=== PATIENT | female | born 1970 | race Caucasian/White ===

== ENCOUNTER 2024-06-17 14:25 | Outpatient (OUT) | payer OTHER, SELFPAY ==
--- NOTE | 2024-06-17 | ECG_ITS ---
[facility] Test Date: 2024-06-17 Pat Name: MILENA CULVER Department: Room: - Gender: Female [employer]: : 1970 Requested By: RUPERTO BURCH Order Number: [id number] Reading MD: CIERA YAÑEZ Measurements Intervals [place] Rate: 69 P: 76 LA: 165 QRS: 81 QRSD: 86 T: 67 QT: 363 QTc: 390 Interpretive Statements SINUS RHYTHM No previous ECG available for comparison Electronically Signed On 06-17-2024 20:24:31 EST by CIERA YAÑEZ
--- NOTE | 2024-06-17 14:40 | XR_ITS ---
The [address] [address] Patient Name: MILENA CULVER MRN: [id number] date: 1970 Sex: F Assigned Patient Location: CARD Current Patient Location: Accession/Order Number: [id number] Exam Date: 06/17/2024 14:45 Report Date: 06/18/2024 06:07 At the request of: NISHI SANTANA Procedure: XR chest 2V EXAMINATION: XR chest 2V HISTORY: Stress Incontinence COMPARISON: No relevant comparison available. FINDINGS: LUNGS: No significant pulmonary parenchymal abnormalities. VASCULATURE: No increased pulmonary vasculature. PLEURA: No pneumothorax, effusion, or pleural thickening. CARDIAC: No cardiomegaly or cardiac silhouette abnormality. MEDIASTINUM: No visible mass or adenopathy. BONES: No fracture or visible bone lesion. OTHER: Negative. XR/XR chest 2V IMPRESSION: No acute cardiopulmonary process. Electronically authenticated by: CASEY PARISH Date: 06/18/2024 06:07
[2024-06-17 15:23] LABS: Basophils Absolute Auto 0.1 10^3/uL (0.0-0.1); Basophils Percent Auto 1.2 % (0.2-2.0); Eosinophils Absolute Auto 0.3 10^3/uL (0.0-0.7); Eosinophils Percent Auto 4.7 % (0.9-7.0); Hematocrit 39.5 % (36.0-48.0); Hemoglobin 13.4 g/dL (12.0-16.0); Immature Granulocytes Abs Auto 0.02 10^3/uL (0.00-0.03); Immature Granulocytes Pct Auto 0.3 % (0.0-0.5); Lymphocytes Absolute Auto 2.1 10^3/uL (1.2-3.8); Lymphocytes Percent Auto 31.2 % (20.5-60.0); Mean Corpuscular HGB Conc 33.9 g/dL (29.9-35.2); Mean Corpuscular Hemoglobin 31.1 pg (26.7-34.0); Mean Corpuscular Volume 91.6 fL (81.0-99.0); Mean Platelet Volume 12.1 fL (9.5-13.5); Monocytes Absolute Auto 0.5 10^3/uL (0.3-0.8); Monocytes Percent Auto 7.5 % (1.7-12.0); Neutrophils Absolute Auto 3.7 10^3/uL (1.4-6.5); Neutrophils Percent Auto 55.1 % (43.0-75.0); Platelet Count 256 10^3/uL (150-450); Red Blood Count 4.31 10^6/uL (4.20-5.40); Red Cell Distribution Width 11.7 % (11.0-15.0); White Blood Count 6.6 10^3/uL (4.0-11.0)
[2024-06-17 15:28] LABS: Bilirubin Urine NEGATIVE (NEGATIVE); Blood Urine NEGATIVE (NEGATIVE); Clarity Urine SL CLOUDY (CLEAR); Color Urine LT. YELLOW (YELLOW); Glucose Urine UA NEGATIVE (NEGATIVE); Ketones Urine NEGATIVE (NEGATIVE); Leukocyte Esterase Urine SMALL (NEGATIVE); Nitrite Urine NEGATIVE (NEGATIVE); Protein Urine NEGATIVE (NEG/TRACE); Specific Gravity Urine 1.015 (1.005-1.025); Urobilinogen Urine 0.2 EU/dL (0.2-1.0)
[2024-06-17 15:40] LABS: Anion Gap 10.5; BUN Creatinine Ratio 22.2; Calcium 9.4 mg/dL (8.5-10.1); Carbon Dioxide 30.2 mmol/L (21.0-32.0); Chloride 103 mmol/L (98-107); Estimated GFR (African America >60 (>=60 mL/min/1.73m^2); Estimated GFR (Non-African Ame >60 (>=60 mL/min/1.73m^2); Glucose 83 mg/dL (74-106); INR 1.03; Partial Thromboplastin Time 29.3 sec (22.3-36.2); Potassium 3.7 mmol/L (3.5-5.1); Prothrombin Time 10.9 sec (9.0-11.6); Sodium 140 mmol/L (136-145)
== END 2024-06-17 14:26 | disposition home or self-care (01) ==
LOC: CARD 14:28
PROVIDERS: PCP Family Medicine; Visit Provider Urology
DX: N39.3 Stress incontinence (female) (male) (principal)
CPT/HCPCS: 36415; 71046; 80048; 81003; 85025; 85610; 85730; 87086; 93005

== ENCOUNTER 2024-09-06 12:37 | Emergency (ER) | payer OTHER, SELFPAY ==
[2024-09-06 12:52] VITALS: BP 126/77; PULSE 73; TEMP 36.7; O2SAT 100; BMI 25.5
--- NOTE | 2024-09-06 13:37 | ED_ITS ---
HPI - Abdominal Pain General Chief Complaint: Abdominal Pain Stated Complaint: BLOOD IN URINE BLOATING ABDOMINAL PAIN Time Seen by Provider: 09/06/24 13:12 Source: patient Mode of arrival: walk-in Limitations: no limitations History of Present Illness HPI narrative: Patient is a 54-year-old female who presents to the emergency department for evaluation of left lower quadrant pain that began yesterday. She has not had any fevers, vomiting. She denies any previous incidence of diverticulitis, however she had a colonoscopy last year that showed diverticulosis. She has not had any diarrhea or bloody stool. She went to the primary care office prior to arrival and they dipped her urine, which apparently showed blood so she was referred to the ER to rule out a kidney stone. She has no flank or back pain. Related Data Home Medications ?Medication ?Instructions ?Recorded ?Confirmed spironolactone 100 mg tablet 100 mg PO DAILY 09/06/24 09/06/24 Previous Rx's ?Medication ?Instructions ?Recorded ciprofloxacin HCl 500 mg tablet 500 mg PO BID #20 tabs 09/06/24 (Cipro) dicyclomine 20 mg tablet 20 mg PO QID PRN abdominal pain 09/06/24 #12 tabs metronidazole 500 mg tablet 500 mg PO Q12H 10 days #20 tabs 09/06/24 ondansetron 4 mg disintegrating 4 mg PO Q6H PRN nausea and 09/06/24 tablet vomiting #12 tabs oxycodone-acetaminophen 5 mg-325 1 tab PO Q6H PRN pain 4 days #15 09/06/24 mg tablet (Percocet) tabs Allergies Allergy/AdvReac Type Severity Reaction Status Date / Time No Known Drug Allergies Allergy Verified 09/06/24 12:51 Review of Systems ROS Constitutional Denies: fever or chills Ears, nose, mouth, and throat Denies: throat pain or nasal congestion Cardiovascular Denies: chest pain Respiratory Denies: shortness of breath or cough Gastrointestinal Reports: abdominal pain; Denies: nausea, vomiting or diarrhea Musculoskeletal Denies: back pain Integumentary/Breast Denies: rash Hematologic/Lymphatic Denies: easy bruising or easy bleeding Exam Narrative Exam Narrative: Gen.: Awake, alert, in no distress Head: Normocephalic, atraumatic ENT: Moist mucous membranes Respiratory: No respiratory distress, lungs clear bilaterally Cardio: Regular rate and rhythm Gastrointestinal: Abdomen is soft, tender in the left lower quadrant with voluntary guarding, no rebound. No flank or back tenderness Extremities: Moves extremities equally Psych: Normal mood and affect Neuro: No focal neuro deficit Skin: Warm, dry, intact Constitutional Vital Signs, click to edit/add: Last Vital Signs Temp 98.1 F 09/06/24 12:52 Pulse 73 09/06/24 12:52 Resp 18 09/06/24 12:52 BP 126/77 09/06/24 12:52 Pulse Ox 100 09/06/24 12:52 O2 Del Method Room Air 09/06/24 12:52 Course Vital Signs Vital signs: Vital Signs Temperature 98.1 F 09/06/24 12:52 Pulse Rate 73 09/06/24 12:52 Respiratory Rate 18 09/06/24 12:52 Blood Pressure 126/77 09/06/24 12:52 Pulse Oximetry 100 09/06/24 12:52 Oxygen Delivery Method Room Air 09/06/24 12:52 Temperature 98.1 F 09/06/24 12:52 Pulse Rate 73 09/06/24 12:52 Respiratory Rate 18 09/06/24 12:52 Blood Pressure 126/77 09/06/24 12:52 Pulse Oximetry 100 09/06/24 12:52 Oxygen Delivery Method Room Air 09/06/24 12:52 MDM - Abdominal Pain MDM Narrative Medical decision making narrative: Received Levsin, Toradol for pain in the ER. She is smiling and comfortable stable vital signs. Laboratory studies reviewed and noted within normal limits. Patient noted to have acute diverticulitis without perforation or abscess on CT. She was treated with Cipro, Flagyl, Percocet, Bentyl, Zofran for home. She prefers outpatient management and is comfortable with treatment plan. She will follow-up with primary care, follow a clear liquid diet for 48 hours and return to the ER if symptoms change or worsen SUPERVISED APC VISIT, PHYSICIAN ATTESTATION: Based on the medical record the care appears appropriate. ? Medical Records Attestation: I reviewed the patient's medical records. Lab Data Attestation: I reviewed the patient's lab results. Labs: Lab Results 09/06/24 09/06/24 Range/Units 13:10 13:42 WBC 10.7 (4.0-11.0) 10^3/uL RBC 4.51 (4.20-5.40) 10^6/uL Hgb 14.0 (12.0-16.0) g/dL Hct 40.6 (36.0-48.0) % MCV 90.0 (81.0-99.0) fL MCH 31.0 (26.7-34.0) pg MCHC 34.5 (29.9-35.2) g/dL RDW 12.4 (11.0-15.0) % Plt Count 237 (150-450) 10^3/uL MPV 12.2 (9.5-13.5) fL Neut % (Auto) 74.3 (43.0-75.0) % Lymph % (Auto) 16.9 L (20.5-60.0) % [place] % (Auto) 6.1 (1.7-12.0) % Eos % (Auto) 1.9 (0.9-7.0) % Baso % (Auto) 0.6 (0.2-2.0) % Neut # (Auto) 7.9 H (1.4-6.5) 10^3/uL Lymph # (Auto) 1.8 (1.2-3.8) 10^3/uL [place] # (Auto) 0.7 (0.3-0.8) 10^3/uL Eos # (Auto) 0.2 (0.0-0.7) 10^3/uL Baso # (Auto) 0.1 (0.0-0.1) 10^3/uL Abs Immat Gran (auto) 0.02 (0.00-0.03) 10^3/uL Imm/Tot Granulo (auto) 0.2 (0.0-0.5) % PT 10.8 (9.0-11.6) sec INR 1.02 Sodium 137 (136-145) mmol/L Potassium 3.8 (3.5-5.1) mmol/L Chloride 100 (98-107) mmol/L Carbon Dioxide 26.1 (21.0-32.0) mmol/L Anion Gap 14.7 BUN 19.0 H (7.0-18.0) mg/dL Creatinine 0.80 (0.55-1.02) mg/dL Est GFR ( Amer) >60 (>=60 mL/min/1.73m^2) Est GFR (Non-Af Amer) >60 (>=60 mL/min/1.73m^2) BUN/Creatinine Ratio 23.8 Glucose 89 (74-106) mg/dL Lactate 0.9 (0.4-2.0) mmol/L Calcium 9.9 (8.5-10.1) mg/dL Total Bilirubin 0.5 (0.2-1.0) mg/dL AST 21 (15-37) U/L ALT 30 (14-59) U/L Alkaline Phosphatase 81 (46-116) U/L Total Protein 8.0 (6.4-8.2) g/dL Albumin 4.0 (3.4-5.0) g/dL Globulin 4.0 g/dL Albumin/Globulin Ratio 1.0 Lipase 28.0 (16.0-77.0) U/L Urine Color Lt. yellow (YELLOW) Urine Clarity Clear (CLEAR) Urine pH 5.5 (5.0-9.0) Ur Specific [place] 1.025 (1.005-1.025) Urine Protein Negative (NEG/TRACE) mg/dL Urine Glucose (UA) Negative (NEGATIVE) mg/dL Urine Ketones Negative (NEGATIVE) mg/dL Urine Occult Blood Negative (NEGATIVE) Urine Nitrite Negative (NEGATIVE) Urine Bilirubin Negative (NEGATIVE) Urine Urobilinogen 0.2 (0.2-1.0) EU/dL Ur Leukocyte Esterase Negative (NEGATIVE) Urine RBC None seen (0-2) #/HPF Urine WBC None seen (NONE SEEN) #/HPF Ur Squamous Epith Cells Moderate A (NONE/RARE) #/LPF Urine Crystals None seen (None Seen) #/HPF Urine Bacteria Trace A (NONE SEEN) #/HPF Urine Casts None seen (NONE SEEN) #/LPF Urine Mucus None seen (NONE SEEN) Ur Culture Indicated? No Imaging Data CT scan - abdomen: Attestation: I have reviewed the pertinent imaging results. Radiologist's impression: ITS Impressions Abdomen/Pelvis CT 09/06/24 14:44 IMPRESSION: There is wall thickening in the junction of the sigmoid and descending colon with accompanying diverticula consistent with acute diverticulitis. There is no evidence of abscess formation or perforation. No bowel obstruction or obstructive uropathy. Bilateral L5 pars defects are noted with grade 2 spondylolisthesis of L5 upon S1. Impression dictated by: Dereck Lock M.D.09/06/2024 4:31 PM Dictation Location: [place] Electronically authenticated by: [id number] Y Date: 09/06/2024 16:31 Discharge Plan Discharge Chief Complaint: Abdominal Pain Clinical Impression: Diverticulitis, Abdominal pain Patient Disposition: Home, Self-Care Time of Disposition Decision: 16:40 Condition: Good Prescriptions / Home Meds: New metronidazole 500 mg tablet 500 mg PO Q12H 10 Days Qty: 20 0RF ciprofloxacin HCl [Cipro] 500 mg tablet 500 mg PO BID Qty: 20 0RF oxycodone-acetaminophen [Percocet] 5-325 mg tablet 1 tab PO Q6H PRN (Reason: pain) 4 Days Qty: 15 0RF Rx Instructions: R10.9 dicyclomine 20 mg tablet 20 mg PO QID PRN (Reason: abdominal pain) Qty: 12 0RF ondansetron 4 mg tablet,disintegrating 4 mg PO Q6H PRN (Reason: nausea and vomiting) Qty: 12 0RF No Action spironolactone 100 mg tablet 100 mg PO DAILY Print Language: Turkmen Instructions: Diverticulitis (ED), Diverticulitis Diet (ED) Referrals: Berenice Anglin MD [Primary Care Provider] - 1 week
[2024-09-06 13:49] LABS: Bilirubin Urine NEGATIVE (NEGATIVE); Blood Urine NEGATIVE (NEGATIVE); Clarity Urine CLEAR (CLEAR); Color Urine LT. YELLOW (YELLOW); Glucose Urine UA NEGATIVE (NEGATIVE); Ketones Urine NEGATIVE (NEGATIVE); Leukocyte Esterase Urine NEGATIVE (NEGATIVE); Nitrite Urine NEGATIVE (NEGATIVE); Protein Urine NEGATIVE (NEG/TRACE); Specific Gravity Urine 1.025 (1.005-1.025); Urobilinogen Urine 0.2 EU/dL (0.2-1.0); pH Urine 5.5 (5.0-9.0)
[2024-09-06 13:49] LABS: Basophils Absolute Auto 0.1 10^3/uL (0.0-0.1); Basophils Percent Auto 0.6 % (0.2-2.0); Eosinophils Absolute Auto 0.2 10^3/uL (0.0-0.7); Eosinophils Percent Auto 1.9 % (0.9-7.0); Hematocrit 40.6 % (36.0-48.0); Immature Granulocytes Abs Auto 0.02 10^3/uL (0.00-0.03); Immature Granulocytes Pct Auto 0.2 % (0.0-0.5); Lymphocytes Absolute Auto 1.8 10^3/uL (1.2-3.8); Lymphocytes Percent Auto 16.9 % (20.5-60.0); Mean Corpuscular HGB Conc 34.5 g/dL (29.9-35.2); Mean Platelet Volume 12.2 fL (9.5-13.5); Monocytes Absolute Auto 0.7 10^3/uL (0.3-0.8); Monocytes Percent Auto 6.1 % (1.7-12.0); Neutrophils Absolute Auto 7.9 10^3/uL (1.4-6.5); Neutrophils Percent Auto 74.3 % (43.0-75.0); Platelet Count 237 10^3/uL (150-450); Red Blood Count 4.51 10^6/uL (4.20-5.40); Red Cell Distribution Width 12.4 % (11.0-15.0); White Blood Count 10.7 10^3/uL (4.0-11.0)
[2024-09-06 13:59] LABS: Bacteria Urine TRACE #/HPF (NONE SEEN); Cast Seen? NONE SEEN #/LPF (NONE SEEN); Crystals Seen? None Seen #/HPF (None Seen); Mucus Urine NONE SEEN (NONE SEEN); RBC Urine NONE SEEN #/HPF (0-2); Squamous Epithelial Cell Urine MODERATE #/LPF (NONE/RARE); Urine Culture Indicated NO; WBC Urine NONE SEEN #/HPF (NONE SEEN)
[2024-09-06 14:04] LABS: INR 1.02; Prothrombin Time 10.8 sec (9.0-11.6)
[2024-09-06 14:07] LABS: Alanine Aminotransferase 30 U/L (14-59); Alkaline Phosphatase 81 U/L (46-116); Anion Gap 14.7; Aspartate Amino Transferase 21 U/L (15-37); BUN Creatinine Ratio 23.8; Bilirubin Total 0.5 mg/dL (0.2-1.0); Calcium 9.9 mg/dL (8.5-10.1); Carbon Dioxide 26.1 mmol/L (21.0-32.0); Chloride 100 mmol/L (98-107); Estimated GFR (African America >60 (>=60 mL/min/1.73m^2); Estimated GFR (Non-African Ame >60 (>=60 mL/min/1.73m^2); Glucose 89 mg/dL (74-106); Potassium 3.8 mmol/L (3.5-5.1); Sodium 137 mmol/L (136-145)
[2024-09-06 14:08] LABS: Lactate/Lactic Acid 0.9 mmol/L (0.4-2.0)
--- NOTE | 2024-09-06 14:44 | CT_ITS ---
The [address] [address] Patient Name: MILENA CULVER MRN: [id number] date: 1970 Sex: F Assigned Patient Location: ER Current Patient Location: ER Accession/Order Number: [id number] Exam Date: 09/06/2024 16:27 Report Date: 09/06/2024 16:31 At the request of: YOUSUF VALLES Procedure: CT abdomen pelvis w con CT abdomen pelvis w con 09/06/2024 2:44 PM SIGNS AND SYMPTOMS: Left lower quadrant pain, hematuria TECHNIQUE: Multidetector ct axial images of the abdomen and pelvis were obtained without IV contrast. Multiplanar reformats were performed and reviewed to further define anatomy and possible pathology. CT was performed with one or more of the following dose reduction techniques: Automated exposure control, adjustment of the mA and/or kV according to patient size, or use of iterative reconstruction technique. COMPARISON: None. FINDINGS: Lower Chest: Within normal limits. ABDOMEN: Liver: Within normal limits. Bile Ducts: Normal caliber. Gallbladder: No calcified gallstones. Normal caliber wall. Pancreas: Within normal limits. Spleen: Within normal limits. Adrenals: Within normal limits. Kidneys: Within normal limits. Pelvis: Reproductive Organs: Multiple complex and hyperattenuating appearing uterine fibroids are visualized. Ureters: Within normal limits. Bladder: Within normal limits. Bowel: There is wall thickening in the junction of the sigmoid and descending colon with accompanying diverticula consistent with acute diverticulitis. There is no evidence of abscess formation or perforation. No bowel obstruction. Surgical clips are noted in the right lower quadrant consistent with prior cholecystectomy. Mesenteric Lymph Nodes: No enlarged mesenteric lymph nodes. Peritoneum: There is a small amount of free fluid in the pelvis. This may be physiologic or reactive. Vessels: within normal limits Retroperitoneum: Within normal limits. Abdominal Wall: Within normal limits. Bones: Bilateral L5 pars defects are noted with grade 2 spondylolisthesis of L5 upon S1. Degenerative changes are noted in the lower lumbar spine. Degenerative changes are noted in the sacroiliac joints with fusion on the right. Degenerative changes are noted in the hips. CT/CT abdomen pelvis w con IMPRESSION: There is wall thickening in the junction of the sigmoid and descending colon with accompanying diverticula consistent with acute diverticulitis. There is no evidence of abscess formation or perforation. No bowel obstruction or obstructive uropathy. Bilateral L5 pars defects are noted with grade 2 spondylolisthesis of L5 upon S1. Impression dictated by: Dereck Lock M.D.09/06/2024 4:31 PM Dictation Location: [place] [address] Electronically authenticated by: [id number] Y Date: 09/06/2024 16:31
[2024-09-06] MEDS: KETOROLAC TROMETHAMINE 30 MG/ML VIAL IVP (15:07)
[2024-09-06] MEDS: HYOSCYAMINE SULFATE 0.125 MG TAB.SUBL SL (15:07)
[2024-09-06 17:04] VITALS: BP 114/79; PULSE 71; TEMP 36.7; O2SAT 100
== END 2024-09-06 17:07 | disposition home or self-care (01) ==
PROVIDERS: Physician Assistant; Emergency Provider Emergency Medicine; PCP Family Medicine
DX: K57.32 Diverticulitis of large intestine without perforation or abscess without bleeding (principal); R10.32 Left lower quadrant pain; K57.30 Diverticulosis of large intestine without perforation or abscess without bleeding
CPT/HCPCS: 36415; 74177; 80053; 81001; 83605; 83690; 85025; 85610; 96374; 99285; J1885; Q9967